=== PATIENT | male | born 2000 | race Caucasian/White ===

== ENCOUNTER 2023-10-05 12:58 | Emergency (ER) | payer OTHER ==
[2023-10-05] MEDS ORDERED: HYDROcodone/Acetaminophen 10/325 mg Tablet ONE (14:33)
== END 2023-10-05 14:40 | disposition home or self-care (01) ==
LOC: ERS 12:58
DX: S82.52XA Displaced fracture of medial malleolus of left tibia, initial encounter for closed fracture (principal); M24.171 Other articular cartilage disorders, right ankle; F17.290 Nicotine dependence, other tobacco product, uncomplicated; W19.XXXA Unspecified fall, initial encounter
CPT/HCPCS: 29515